=== PATIENT | female | born 1990 | race Caucasian/White ===

== ENCOUNTER 2016-05-30 22:02 | Emergency (ER) ==
[2016-05-30] MEDS ORDERED: SODIUM CHLORIDE 0.9% INJ ONE (22:38)
[2016-05-30] MEDS ORDERED: PHENERGAN IV ONE (22:38)
[2016-05-30] MEDS ORDERED: MORPHINE IV ONE (22:38)
[2016-05-30] MEDS ORDERED: NS 1,000 ML IV ONE (22:38)
--- NOTE | 2016-05-30 23:05 | PROVIDER DOCUMENTATION ---
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) Dark Stools Present?: reports: other (green) Rectal Bleeding: reports: none # of Vomiting Episodes: 20 (greater than 20) Emesis Description: reports: none <Elias Sosa - Last Filed: 05/30/16 23:00> <Darren Bishop - Last Filed: 05/31/16 00:32> - General Chief Complaint: Flank Pain Stated Complaint: RT SIDE PAIN, VOMITING, LIGHT HEADED Time Seen by Provider: 05/30/16 22:19 Allergies/Adverse Reactions: Patient Allergies Allergy/AdvReac Type Severity Reaction Status Date / Time No Known Allergies Allergy Verified 05/30/16 22:36 - History of Present Illness-ABD Nature of Presenting Problems: Pt is a 26 yof who presents to ER with CC of R flank pain, RUQ pain, vomit, and green diarrhea x1 day. Pt reports that she was eating dinner tonight and after eating, pt reports she ran to the bathroom to vomit (bilius matter) and had an episode of diarrhea (green in color). Pt reports having greater than 20 vomiting episodes since dinner. Pt denies F. Pt has hx of esophageal spasms and has been to [facility] for esophageal stretching. (Elias Sosa) Review of Systems - Adult - REVIEW OF SYSTEMS - ADULT Constitutional: denies: chills, fever, fatique, night sweats Eyes: reports: no symptoms reported Ears, Nose, Mouth & Throat: reports: no symptoms reported Cardiovascular: reports: no symptoms reported Respiratory: reports: no symptoms reported Gastrointestinal: reports: abdominal pain, diarrhea, nausea, poor appetite, vomiting. denies: hematemesis, constipation, difficulty swallowing, frequent heartburn, rectal bleeding Genitourinary: reports: no symptoms reported Musculoskeletal: reports: back pain (R flank). denies: bone pain, muscle aches , muscle weakness Integumentary: reports: no symptoms reported Neurological: reports: no symptoms reported Psychiatric: reports: no symptoms reported Endocrine: reports: no symptoms reported Hematologic/Lymphatic: reports: no symptoms reported Allergic/Immunologic: reports: no symptoms reported All Other Systems: Reviewed and Negative <Elias Sosa - Last Filed: 05/30/16 23:00> Past History - Adult - PAST MEDICAL HISTORY-ADULT Review of Records: reports: Nursing Assessment Review, Medications Reviewed - PRIOR SURGERIES/PROCEDURES Surgical/Procedure History: reports: tonsillectomy, other (artifical bone in ear ) - IMMUNIZATION STATUS Childhood Immunizations: See Nurse Assessment Flu Vaccine: See Nurse Assessment <Elias Sosa - Last Filed: 05/30/16 23:00> Physical Exam-General - PHYSICAL EXAM-ADULT Initial Vital Signs Reviewed: Yes - CONSTITUTIONAL General Appearance: appears well, alert, moderate distress - NECK Neck: non-tender, full range of motion, supple - RESPIRATORY Respiratory: chest non-tender, lungs clear, normal breath sounds - CARDIOVASCULAR Cardiovascular: normal peripheral pulses, regular rate, rhythm - GASTROINTESTINAL (ABDOMEN) Abdominal Exam: normal bowel sounds, soft, tenderness (RUQ) - LYMPHATIC Lymphatic: no adenopathy - MUSCULOSKELETAL Back Exam: no vertebral tenderness, CVA tenderness (R flank) Extremity: normal range of motion, non-tender, normal gait - SKIN Integumentary: normal color, normal turgor, warm/dry - NEUROLOGIC Neurologic: grossly normal, no motor/sensory deficits - PSYCHIATRIC Psych/Mental Status: normal mood/affect, normal thought content, normal thought process, oriented x 3 <Elias Sosa - Last Filed: 05/30/16 23:00> Progress <Elias Sosa - Last Filed: 05/30/16 23:00> - CT/MRI 1 CT Study: Abdomen, Pelvis Impression: Abnormal (4mm stone in distal R ureter with mild hydronephrosis. 5mm stone in proximal L ureter without hydronephrosis - radiology) <Darren Bishop - Last Filed: 05/31/16 00:32> - PLAN OF CARE/RESULTS Progress/Plan/Lab Results: Orders Category Date Time Status Saline Loc DIRECTED Care 05/30/16 22:34 Active [ED: Urine Bedside] ORDERED Care 05/30/16 23:32 Active NPO Diet 05/30/16 22:[address] ABD/PELVIS W/ IV CONT ONLY [CT] Stat Exams 05/30/16 22:57 Taken AMYLASE [CHEM] Stat Lab 05/30/16 23:30 Received CBC WITH ELECTRONIC DIFF [HEME] Stat Lab 05/30/16 23:30 Results COMPREHENSIVE METABOLIC PANEL [CHEM] Stat Lab 05/30/16 21:35 Completed LIPASE [CHEM] Stat Lab 05/30/16 21:35 Completed 0.9% Sodium Chloride Inj [Ns] 1,000 ml Med 05/30/16 22:38 Discontinued IV 999 mls/hr Hydromorphone [Dilaudid] Med 05/31/16 00:25 Discontinued 1 mg .ROUTE .STK-MED ONE Hydromorphone [Dilaudid] Med 05/31/16 00:27 Discontinued 1 mg IV NOW ONE Morphine Med 05/30/16 22:38 Discontinued 4 mg IV NOW ONE Promethazine [Phenergan] Med 05/30/16 22:38 Discontinued 12.5 mg IV NOW ONE Sodium Chloride 0.9% Med 05/30/16 22:38 Discontinued 10 ml INJ NOW ONE Laboratory Tests 05/30/16 05/30/16 05/30/16 21:35 23:30 23:30 Sodium 140 Potassium 3.8 Chloride 101 Carbon Dioxide 26 Anion Gap 13 BUN 17 Creatinine 0.7 Estimated GFR/1.73 m2 > 60 BUN/Creatinine Ratio 24 Glucose 123 H Calculated Osmolality 282 Calcium 8.9 Total Bilirubin 0.28 AST 13 ALT 16 Alkaline Phosphatase 101 Total Protein 7.2 Albumin 4.2 Globulin 3.0 Albumin/Globulin Ratio 1.4 Amylase 47 Lipase 23 Urine Source CLEAN CATCH Urine Color YELLOW Urine Clarity CLOUDY A Urine pH 5.5 Ur Specific [place] >= 1.030 Urine Protein 30 A Urine Ketones NEGATIVE Urine Blood LARGE A Urine Nitrite NEGATIVE Urine Bilirubin NEGATIVE Urine Urobilinogen 0.2 Urine Microscopic RBC TNTC A Urine WBC NEGATIVE Urine Glucose NEGATIVE Vital Signs - 24 hr 05/30/16 22:05 Temperature 98.0 F Pulse Rate 66 Respiratory 18 Rate Blood Pressure 130/114 O2 Sat by Pulse 100 Oximetry (Darren Bishop) Departure <Elias Sosa - Last Filed: 05/30/16 23:00> - Departure Time of Disposition Order: 00:30 Certified Medical Emergency: Emergent <Darren Bishop - Last Filed: 05/31/16 00:32> - Departure DIAGNOSIS: Renal stones Disposition: HOME 01 Condition: Stable Additional Instructions: ED Follow Up Instructions: You have been treated by a care provider in the Emergency Department. These instructions are being provided to you so you can have an understanding of how to care for yourself upon discharge. Upon discharge from the Emergency Department, you are responsible for making arrangements for follow-up care by a physician of your choice. Take all prescribed medications as directed. Return to the Emergency Department immediately for any new or worsening symptoms. You may call the Physician Referral phone number at [phone] to obtain a list of Physicians who are taking new patients. Prescriptions: Tamsulosin [Flomax] 0.4 mg PO DAILY #20 capsule Ibuprofen [Motrin] 800 mg PO Q8H PRN PRN #20 tablet PRN Reason: inflammation Hydrocodone/APAP 7.5 mg/325 mg [Revelo-7.5] 1 each PO Q6H PRN PRN #14 tablet PRN Reason: Pain Omeprazole [Prilosec] 20 mg PO DAILY@0700 #20 capsule Referrals: Torito Lujan DO [Primary Care Provider] - Neeraj Alvarado DO [STAFF PHYSICIAN] - Attestation - Scribe Verification/Attestation Scribe:: Elias Sosa Acting as Scribe for:: Darren Bishop Scribe documention review:: This chart was documented by a scribe and accurately reflects the service the provider performed and the decisions made by the provider. <Elias Sosa - Last Filed: 05/30/16 23:00> - Physician/ Mid-level Attestation Patient care was provided by Mid-level provider (RADIO HOST/PA):: Yes Mid-level provider:: Darren Bishop Mid-level documentation review:: The Mid-level provider documentation, treatment plan and medical decision making was reviewed by the physician who agrees with all treatment and medical decision making by the P. <Darren Bishop - Last Filed: 05/31/16 00:32> Physician Attestation
[2016-05-30 23:14] LABS: AGAP 13; ALBUMIN 4.2 g/dL (3.5-5.0); ALKALINE PHOSPHATASE 101 U/L (32-104); BUN 17 mg/dL (8-22); CALCIUM 8.9 mg/dL (8.8-10.2); CHLORIDE 101 mmol/L (98-107); COSMO 282; GOT 13 U/L (10-30); GPT 16 U/L (10-36); LIPASE 23 U/L (13-60); POTASSIUM 3.8 mmol/L (3.5-5.1); SODIUM 140 mmol/L (136-145); TCO2 26 mmol/L (25-35); TOTAL BILIRUBIN 0.28 mg/dL (0.20-1.00); TOTAL PROTEIN 7.2 g/dL (6.3-8.3)
[2016-05-30 23:34] LABS: URINE SOURCE CLEAN CATCH
[2016-05-30 23:49] LABS: BILIRUBIN URINE NEGATIVE (NEGATIVE); BLOOD URINE LARGE (NEGATIVE); CLARITY CLOUDY (CLEAR); COLOR YELLOW; GLUCOSE URINE NEGATIVE (NEGATIVE); LEUKOCYTES URINE NEGATIVE (NEGATIVE); NITRITE URINE NEGATIVE (NEGATIVE); PH URINE 5.5; PROTEIN URINE 30 mg/dL (NEGATIVE); SP GRAVITY URINE >= 1.030; URINE RBC TNTC /HPF (<10); UROBILINOGEN URINE 0.2 EU/dL (0.2-1.0)
[2016-05-31 00:11] LABS: MANUAL DIFF NEEDED? NO
[2016-05-31] MEDS ORDERED: DILAUDID ONE (00:25)
[2016-05-31] MEDS ORDERED: DILAUDID IV ONE (00:27)
[2016-05-31 00:48] LABS: BASO% 0.3 % (0.0-0.8); EOS# 0.27 X1000 (0.0-0.7); EOS% 2.6 % (0.0-10.0); HEMATOCRIT 36.7 % (37.0-47.0); HEMOGLOBIN 11.5 g/dL (12.0-16.0); IMM GRAN# 0.03 X1000 (0.0-0.04); IMM GRAN% 0.3 % (0.0-0.5); LYMPH# 3.36 X1000 (1.2-3.4); LYMPH% 31.9 % (20.5-51.1); MCH 23.5 PG (27-31); MCHC 31.3 g/dL (33-37); MCV 75.1 FL (81-99); MONO# 0.83 X1000 (0.11-0.59); MONO% 7.9 % (1.7-9.3); MPV 10.1 FL (7.4-10.4); PLT 381 X1000 (130-400); RBC 4.89 XMIL (4.2-5.4)
[2016-05-31 01:08] VITALS: BP 143/84
--- NOTE | 2016-05-31 06:40 | Diag Imaging Result Document ---
PROCEDURE NAME: CT ABD/PELVIS W/ IV CONT ONLY - 05/30/2016 CT ABDOMEN AND PELVIS WITH INTRAVENOUS CONTRAST: TECHNIQUE: Dose-reduction protocol. COMPARISON: No comparison films. FINDINGS: There is a calcified granuloma in the right lower lobe and there are calcified subcarinal lymph nodes. No pleural effusions. There is fatty infiltration of the liver. Normal spleen, pancreas, gallbladder, and adrenal glands. There is a delayed right nephrogram. Mild right-sided hydronephrosis secondary to a 3 mm stone in the distal right ureter near the ureterovesical junction. There is also a 6 mm stone in the proximal left ureter near the ureteropelvic junction. No left-sided hydronephrosis. I believe there is an additional left lower pole renal stone. Normal aorta. No bowel obstruction Normal appendix. No abscess. Normal ovaries and uterus. The urinary bladder is bony mildly distended. IMPRESSION: 1. There is a 3 mm stone in the distal right ureter. Mild right-sided hydronephrosis. 2. There is a 6 mm stone in the proximal left ureter without left-sided hydronephrosis. I believe there is also nonobstructing left lower pole renal stone. 3. Fatty infiltration of the liver. A preliminary report was given at 12:23 a.m.
== END 2016-05-31 01:07 | disposition home or self-care (01) ==
LOC: ED 22:02
DX: N13.2 Hydronephrosis with renal and ureteral calculous obstruction (principal); K76.0 Fatty (change of) liver, not elsewhere classified; R10.11 Right upper quadrant pain; R10.9 Unspecified abdominal pain; R19.7 Diarrhea, unspecified; R11.2 Nausea with vomiting, unspecified; R42 Dizziness and giddiness; M54.9 Dorsalgia, unspecified; R10.811 Right upper quadrant abdominal tenderness
CPT/HCPCS: 74177; 80053; 81001; 81025; 82150; 83690; 85025; 96374; 96375; J1170; J2270; J2550; J7030; Q9967